=== PATIENT | male | born 1975 | race Caucasian/White ===

== ENCOUNTER 2024-08-28 17:17 | Observation (INO) | payer BC ==
[2024-08-28] MEDS ORDERED: Bupivacaine HCl 0.5%/Epinephrine 1:200,000/PF 30 ml Vial ONE (18:17)
[2024-08-28] MEDS ORDERED: Rocuronium Bromide 10 MG/ML (10ML VIAL) ONE (18:27)
[2024-08-28] MEDS ORDERED: PROPOFOL 40 ML ONE (18:27)
[2024-08-28] MEDS ORDERED: Fentanyl 250 MCG/5 ML VIAL ONE (18:27)
[2024-08-28] MEDS ORDERED: Ondansetron PF 4 MG/2 ML Vial ONE (18:28)
[2024-08-28] MEDS ORDERED: Dexamethasone 20 MG/5 ML VIAL ONE (18:28)
[2024-08-28 18:29] VITALS: BMI 22.2
[2024-08-28] MEDS: Piperacillin/Tazobactam 3.375 GM in Sodium Chloride 0.9% 100 ML IVPB SCH (18:29)
[2024-08-28] MEDS ORDERED: Ondansetron PF 4 MG/2 ML Vial IVP PRN (18:34)
[2024-08-28] MEDS ORDERED: Promethazine HCl 25 MG/ML VIAL IM PRN (18:34)
[2024-08-28] MEDS ORDERED: Ipratropium/Albuterol 3 ML NEB NEB PRN (18:34)
[2024-08-28] MEDS ORDERED: HYDROcodone/Acetaminophen 10/325 mg Tablet PO PRN ×2 (18:34)
[2024-08-28] MEDS ORDERED: hydrALAZINE 20 MG/ML VIAL SLOW IVP PRN (18:34)
[2024-08-28] MEDS ORDERED: Morphine 2 MG/ML VIAL SLOW IVP PRN (18:34)
[2024-08-28] MEDS ORDERED: Morphine 4 MG/ML VIAL SLOW IVP PRN (18:34)
[2024-08-28] MEDS ORDERED: PHENYLEPHRINE-NS 100 MCG/ML 10 ML SYRINGE ONE (18:57)
[2024-08-28] MEDS ORDERED: Glycopyrrolate 0.2 MG/ML 5 ML SYRINGE ONE (18:58)
[2024-08-28] MEDS ORDERED: SUGAMMADEX SODIUM 200 MG/2 ML VIAL ONE (19:09)
[2024-08-28] MEDS ORDERED: Dexmedetomidine 200 MCG/2 ML VIAL ONE (19:13)
[2024-08-28] MEDS ORDERED: Famotidine 20 MG TAB PO SCH (21:00)
[2024-08-28] MEDS: FLU (Fluarix Triv) TS24-25(6MOS UP)/PF 45 MCG/0.5 ML Syringe IM ONE (21:13)
[2024-08-28] MEDS: Famotidine/PF 20 mg/2ml Vial SLOW IVP SCH (21:13)
[2024-08-28] MEDS: Sodium Chloride 0.9% 1,000 ML IV SCH (21:14)
[2024-08-28] MEDS ORDERED: Ketorolac Tromethamine 30 MG (1 mL) VIAL IVP SCH (23:59)
[2024-08-29 00:31] VITALS: BP 116/70; TEMP 97.7
== END 2024-08-28 21:50 | disposition home or self-care (01) ==
LOC: CSHTELE 17:17
PROVIDERS: ADMIT Surgery; ATTEND Surgery
PROC: 0DTJ4ZZ Resection of Appendix, Percutaneous Endoscopic Approach (ICD-10-PCS; principal; 2024-08-28)
DX: K35.80 Unspecified acute appendicitis (principal)
CPT/HCPCS: 88304; J1100; J2405; J2543; J2704; J3010; J3490

== ENCOUNTER 2025-06-29 15:54 | Emergency (ER) | payer BC ==
[2025-06-29 17:34] LABS: #Basophils 0.03 10x3/uL (0.0-0.2); #Eosinophils 0.37 10x3/uL (0.0-0.5); #Monocytes 0.63 10x3/uL (0.0-1.1); #Neutrophils 4.32 10x3/uL (1.5-8.4); %Basophils 0.4 % (0.0-2.0); %Eosinophils 5.1 % (0.0-6.0); %Lymphocytes 25.4 % (18.0-47.0); %Monocytes 8.8 % (0.0-10.0); %Neutrophils 60.0 % (40.0-75.0); Hematocrit 42.0 % (38.8-50.0); Hemoglobin 14.4 g/dL (13.5-17.5); Mean Corpuscular Hemoglobin 29.4 pg (27.0-33.0); Mean Corpuscular Volume 85.9 fL (81.2-95.1); Platelet Count 207 10x3/uL (150-450); Red Blood Cell (RBC) Count 4.89 10x6/uL (4.32-5.72); White Blood Cell (WBC) Count 7.20 10x3/uL (3.5-10.5)
[2025-06-29 17:48] LABS: ALT (SGPT) 18 U/L (Less than 45); AST (SGOT) 20 U/L (11-34); Albumin 4.6 g/dL (3.1-4.5); Alkaline Phosphatase 44 U/L (40-110); Anion Gap 15 mmol/L (10-20); BUN (Urea Nitrogen) 16 mg/dL (8.9-20.6); Bilirubin, Total 1.7 mg/dL (0.3-1.2); Calc. Creatinine Clearance 0 mL/min (70-130); Calcium 9.2 mg/dL (7.8-10.44); Carbon Dioxide 25 mmol/L (22-29); Chloride 105 mmol/L (98-107); Globulin 2.9 g/dL (2.4-3.5); Glucose 83 mg/dL (70-105); Potassium 3.8 mmol/L (3.5-5.1); Sodium 141 mmol/L (136-145)
[2025-06-29 17:51] LABS: Troponin I 0.012 ng/mL (< 0.028)
== END 2025-06-29 18:23 | disposition home or self-care (01) ==
LOC: CSHERS 15:54
DX: R07.89 Other chest pain (principal)
CPT/HCPCS: 36415; 71045; 80053; 84484; 85025; 93005